=== PATIENT | female | born 1990 | race American Indian/Alaskan Native ===

== ENCOUNTER 2020-11-07 08:36 | Emergency (ER) | payer MEDICAID ==
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
== END 2020-11-07 09:40 | disposition left against medical advice (07) ==
LOC: ED 08:36
CPT/HCPCS: 99282

== ENCOUNTER 2020-11-23 18:58 | Emergency (ER) | payer MEDICAID ==
--- NOTE | 2020-11-23 22:29 | Emergency Department Report ---
- General Chief Complaint: Fever Stated Complaint: FLU LIKE SYMPTOMS Time Seen by Provider: 11/23/20 22:24 Source: patient, EMS Mode of arrival: Stretcher Limitations: No Limitations - History of Present Illness Initial Comments: 30-year-old -[place] female emergency room stating that she had a fever of "200" body aches headaches decreased taste for 2 weeks. Patient denies any cough. Patient has not vaccinated. Has not been Covid tested. Does not have a primary care provider. Came in by EMS. Denies any shortness of breath chest pain no nausea no vomiting. Onset/Timin -: week(s) Severity scale (0 -10): 2 Quality: aching Consistency: intermittent Improves With: nothing Worsens With: nothing Associated Symptoms: fever, chills, other (Body aches) Treatments Prior to Arrival: none - Related Data Previous Rx's Medication Instructions Recorded Last Taken Type Ibuprofen [Motrin] 800 mg PO Q8HR PRN #15 tablet 04/05/16 Unknown Rx Allergies Allergy/AdvReac Type Severity Reaction Status Date / Time No Known Allergies Allergy Unverified 04/05/16 13:34 ED Review of Systems ROS: Stated complaint: FLU LIKE SYMPTOMS Other details as noted in HPI Comment: All other systems reviewed and negative ED Past Medical Hx - Past Medical History Previous Medical History?: Yes 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 Anemia - Surgical History Past Surgical History?: No - Social History Smoking Status: Current Every Day Smoker Substance Use Type: None - Medications Home Medications: Home Medications Medication Instructions Recorded Confirmed Last Taken Type Ibuprofen [Motrin] 800 mg PO Q8HR PRN #15 tablet 04/05/16 Unknown Rx ED Physical Exam - General Limitations: No Limitations General appearance: alert, in no apparent distress - Head Head exam: Present: atraumatic, normocephalic - Eye Eye exam: Present: normal appearance - ENT ENT exam: Present: mucous membranes moist - Neck Neck exam: Present: normal inspection - Respiratory Respiratory exam: Present: normal lung sounds bilaterally. Absent: respiratory distress - Cardiovascular Cardiovascular Exam: Present: regular rate, normal rhythm. Absent: systolic murmur, diastolic murmur, rubs, gallop - GI/Abdominal GI/Abdominal exam: Present: soft, normal bowel sounds - Extremities Exam Extremities exam: Present: normal inspection - Back Exam Back exam: Present: normal inspection - Neurological Exam Neurological exam: Present: alert, oriented X3 - Psychiatric Psychiatric exam: Present: normal affect, normal mood - Skin Skin exam: Present: warm, dry, intact, normal color. Absent: rash ED Course Vital Signs 11/23/20 22:01 Temperature 98.6 F Pulse Rate 94 H Respiratory 12 Rate Blood Pressure 109/68 O2 Sat by Pulse 100 Oximetry ED Medical Decision Making - Medical Decision Making 30-year-old -[place] female emergency room stating that she had a fever of "200" body aches headaches decreased taste for 2 weeks. Patient denies any cough. Patient has not vaccinated. Has not been Covid tested. Does not have a primary care provider. Came in by EMS. Denies any shortness of breath chest pain no nausea no vomiting. Patient has stable vital signs physical examination is within normal limits. Discussed with patient she needs to get vaccinated Covid testing. She can take Tylenol or ibuprofen for pain. Increase her fluid intake. Critical care attestation.: If time is entered above; I have spent that time in minutes in the direct care of this critically ill patient, excluding procedure time. ED Disposition Clinical Impression: Suspected COVID-19 virus infection Disposition: TO HOME OR SELFCARE Is pt being admited?: No Does the pt Need Aspirin: No Condition: Stable Instructions: COVID-19: How to Protect Yourself and Others - CDC, Prevent the Spread of COVID-19 if You Are Sick - CDC Additional Instructions: Your symptoms appear most consistent with a nonspecific viral syndrome. However, given this current pandemic, COVID-19 is in the differential of possibilities. I do recommend outpatient Covid 19 testing. In the meantime, isolate/quarantine yourself and stay away from anyone who is elderly, immunocompromised or chronically ill. You can use ibuprofen every 6-8 hours and Tylenol every 4-8 hours, using the dosing on the back of the bottle, as needed for any fever or body aches. Return to the emergency department with any worsening of your symptoms, development of chest pain or shortness of breath, or with any acute distress. Referrals: [facility] [Provider Group] - 3-5 Days Time of Disposition: 22:29
[2020-11-23 23:27] VITALS: BP 110/75
== END 2020-11-23 23:00 | disposition home or self-care (01) ==
LOC: ED 18:58
DX: Z20.822 Contact with and (suspected) exposure to COVID-19 (principal); H91.91 Unspecified hearing loss, right ear; D64.9 Anemia, unspecified; F17.200 Nicotine dependence, unspecified, uncomplicated
CPT/HCPCS: 99283

== ENCOUNTER 2021-08-09 20:06 | Outpatient (CLI) | payer MEDICAID ==
[2021-08-09] MEDS ORDERED: LACTATED RINGERS 1,000 ML ONE (21:26)
[2021-08-09] MEDS ORDERED: LACTATED RINGERS 500 ML IV ONE (22:12)
[2021-08-09] MEDS ORDERED: ACETAMINOPHEN 325 MG TAB PO ONE (22:13)
[2021-08-09 22:53] LABS: Amphetamine Screen,Urine PRESUMPTIVE NEGATIVE; Benzodiazepines Screen,Urine PRESUMPTIVE NEGATIVE; Cannabinoid Screen,Urine PRESUMPTIVE POSITIVE; Cocaine Screen,Urine PRESUMPTIVE NEGATIVE; Methadone Screen,Urine PRESUMPTIVE NEGATIVE; Opiate Screen,Urine PRESUMPTIVE NEGATIVE
== END 2021-08-10 00:18 | disposition home or self-care (01) ==
LOC: EDSTATUS 20:33 → TRG 20:34 → LD 20:35 → TRG 08-10 00:18
PROVIDERS: ATTEND Obstetrics & Gynecology
DX: O26.893 Other specified pregnancy related conditions, third trimester (principal); M79.10 Myalgia, unspecified site; R50.9 Fever, unspecified; O21.2 Late vomiting of pregnancy; O99.323 Drug use complicating pregnancy, third trimester; F12.90 Cannabis use, unspecified, uncomplicated; Z3A.32 32 weeks gestation of pregnancy
CPT/HCPCS: 80307; 96360; J7120

== ENCOUNTER 2021-09-19 20:32 | Inpatient (IN) | payer MEDICAID ==
[2021-09-19] MEDS ORDERED: BUTORPHANOL 2 MG/1 ML INJ IV PRN ×2 (22:47→22:53)
[2021-09-19] MEDS ORDERED: TERBUTALINE 1 MG/1 ML INJ SUB-Q PRN (22:47)
[2021-09-19] MEDS ORDERED: CARBOPROST TROMETHAMINE 250 MCG/1 ML INJ IM PRN (22:47)
[2021-09-19] MEDS ORDERED: ePHEDrine SULFATE 50 MG/1 ML INJ IV PRN (22:47)
[2021-09-19] MEDS ORDERED: ACETAMINOPHEN 325 MG TAB PO PRN (22:47)
[2021-09-19] MEDS ORDERED: fentaNYL 100 MCG/2 ML INJ IV PRN (22:47)
[2021-09-19] MEDS ORDERED: METHYLERGONOVINE MALEATE 0.2 MG/ML VIAL IM PRN (22:47)
--- NOTE | 2021-09-19 22:52 | History and Physical Report ---
History of Present Illness Date of examination: 09/19/21 Date of admission: 09/19/2021 Chief complaint: Contractions History of present illness: 31-year-old at 38-2/7 weeks gestation presents to OB triage reporting regular and painful uterine contractions occurring every 3 minutes. There is no vaginal bleeding or leaking of fluid. There is good movement. In OB triage, cervical exam changed from 2/50%/-2 to 6/80%/-1. As such, this patien fulfills the contemporary criteria for the diagnosis of active labor. The patient is admitted to labor and delivery for management of active labor. Past History Past Medical History: no pertinent history Past Surgical History: no surgical history Family/Genetic History: none Social history: no significant social history - Obstetrical History Expected Date of Delivery: 10/01/21 Actual Gestation: 38 Week(s) 2 Day(s) : 5 Para: 2 Hx # Term Pregnancies: 2 Induced : 2 Medications and Allergies Allergies Allergy/AdvReac Type Severity Reaction Status Date / Time No Known Allergies Allergy Verified 08/09/21 21:30 Home Medications Medication Instructions Recorded Confirmed Last Taken Type Ibuprofen [Motrin] 800 mg PO Q8HR PRN #15 tablet 04/05/16 Unknown Rx Active Meds: Active Medications Acetaminophen (Acetaminophen 325 Mg Tab) 650 mg PO Q4H PRN PRN Reason: Pain, Mild (1-3) Butorphanol Tartrate (Butorphanol 2 Mg/1 Ml Inj) 1 mg IV Q2H PRN PRN Reason: Pain, Moderate(4-6) LABOR PAIN Carboprost Tromethamine (Carboprost Tromethamine 250 Mcg/1 Ml Inj) 250 mcg IM ONCE PRN PRN Reason: Uterine Bleeding Ephedrine Sulfate (Ephedrine Sulfate 50 Mg/1 Ml Inj) 10 mg IV Q2M PRN PRN Reason: Hypotension Fentanyl (Fentanyl 100 Mcg/2 Ml Inj) 100 mcg IV Q2H PRN PRN Reason: Pain,Severe (7-10) LABOR PAIN Lactated Ringer's (Lactated Ringers) 1,000 mls @ 125 mls/hr IV DIRECT NUBIA Oxytocin/Sodium Chloride (Pitocin/Ns 30 Unit/500ml) 30 units in 500 mls @ 40 mls/hr IV TITR NUBIA; Protocol Methylergonovine Maleate (Methylergonovine Maleate 0.2 Mg/Ml Vial) 0.2 mg IM ONCE PRN PRN Reason: Uterine Bleeding Terbutaline Sulfate (Terbutaline 1 Mg/1 Ml Inj) 0.25 mg SUB-Q ONCE PRN PRN Reason: Hyperstimulation/Hypertonicity Review of Systems All systems: negative - Vital Signs Vital signs: Vital Signs Pulse Pulse Ox 78 98 09/19/21 20:50 09/19/21 20:50 Temp Pulse Resp BP Pulse Ox 97.6 F 89 117/89 99 09/19/21 21:02 09/19/21 22:44 09/19/21 22:09 09/19/21 22:44 - Physical Exam Breasts: Positive: normal Cardiovascular: Regular rate Lungs: Positive: Normal air movement Abdomen: Positive: normal appearance Genitourinary (Female): Positive: normal external genitalia, normal perenium Vulva: both: normal Vagina: Positive: normal moisture Uterus: Positive: enlarged Adnexa: both: normal Anus/Rectum: Positive: normal perianal skin Extremities: Positive: normal Deep Tendon Reflex Grade: Normal +2 - Obstetrical FHR: category 1 Uterine Contraction Monitor Mode: External Cervical Dilatation: 6 Cervical Effacement Percentage: 80 station: -1 Uterine Contraction Frequency (min): 3 Uterine Contraction Pattern: Regular Uterine Tone Measurement Phase: Contraction Uterine Contraction Intensity: Moderate Results All other labs normal. Ultrasound: pending (OB Ultrasound Limited= ordered) Assessment and Plan - Patient Problems (1) 38 weeks gestation of Current Visit: Yes Status: Acute Plan to address problem: care is up-to-date at . The patient states that she is GBS negative. (2) Spontaneous onset of labor after 37 but before 39 completed weeks gestation with delivery by planned section Current Visit: Yes Status: Acute Plan to address problem: Cervix change from 2 cm dilated to 6 cm dilated. As such, this patient is an active labor. Admit to labor and delivery. Expectant management for now. Artificially rupture membranes and/or start Pitocin for augmentation as needed.
[2021-09-19] MEDS ORDERED: LACTATED RINGERS 1,000 ML IV SCH (23:00)
[2021-09-19] MEDS ORDERED: OXYTOCIN DRIP 30 UNITS/500 ML BAG IV SCH (23:00)
[2021-09-19 23:13] LABS: Hematocrit 30.9 % (30.3-42.9); Hemoglobin 10.3 gm/dl (10.1-14.3); Mean Corpuscular HGB Conc 33 % (30-34); Mean Corpuscular Volume 75 fl (79-97); Platelet Count 274 K/mm3 (140-440); Red Blood Count 4.13 M/mm3 (3.65-5.03); Red Cell Distribution Width 15.9 % (13.2-15.2)
[2021-09-19] MEDS ORDERED: LIDOCAINE (2%) 20 MG/1 ML VIAL 20 ML MDV INFILTRATI ONE (23:54)
[2021-09-20] MEDS ORDERED: ACETAMINOPHEN 325 MG TAB PO PRN (00:22)
[2021-09-20] MEDS ORDERED: BENZOCAINE/MENTHOL 20/0.5% TOP SPRAY 56 GM TP PRN (00:22)
[2021-09-20] MEDS ORDERED: WITCH HAZEL/ GLYCERIN PAD TP PRN (00:22)
[2021-09-20] MEDS ORDERED: LANOLIN/ZINC/DIMETHICONE (LANSINOH) 7 GM TP PRN (00:22)
[2021-09-20] MEDS ORDERED: MAGNESIUM HYDROXIDE (MOM) ORAL LIQD UDC PO PRN (00:22)
--- NOTE | 2021-09-20 00:26 | Procedure Note ---
OB Delivery Note - Delivery Date of Delivery: 09/19/21 Surgeon: KG MORALES Estimated blood loss: 100cc - Vaginal Delivery presentation: vertex Delivery position: OA Intrapartum events: precipitous labor- <3hr Delivery induction: none Delivery monitor: external FHT, external uterine Route of delivery: Delivery placenta: spontaneous Delivery cord: 3 umbilical vessels Episiotomy: none Delivery laceration: other (Periurethral laceration) Delivery repair: vicryl Anesthesia: local - Infant A at 1 minute: 8 at 5 minutes: 9 Infant Gender: Female
[2021-09-20] MEDS: IBUPROFEN 800 MG TAB PO SCH ×4 (01:12→17:33)
[2021-09-20] MEDS: HYDROcodone/ACETAMINOPHEN 5-325 MG TAB PO PRN ×2 (02:54→12:20)
[2021-09-20 04:29] LABS: Hepatitis C Virus Antibody Non-Reactive (NonReactive)
[2021-09-20] MEDS: DOCUSATE SODIUM 100 MG CAP PO SCH ×2 (09:07→22:50)
--- NOTE | 2021-09-20 09:18 | Progress Note ---
Assessment and Plan A: PPD # 1 - stable P: Discharge in am Discharge instructions given Subjective - Subjective Date of service: 09/20/21 Principal diagnosis: PPD # 1 - stable Patient reports: appetite normal : doing well Objective - Vital Signs Latest vital signs: Vital Signs Temp Pulse Resp BP Pulse Ox Pulse Ox 09/20/21 08:15 99 09/20/21 04:47 99 09/20/21 04:16 98.2 F 61 18 118/47 97 09/20/21 03:54 18 09/20/21 03:25 84 100 09/20/21 03:24 85 93 09/20/21 03:20 68 100 09/20/21 03:15 65 99 09/20/21 03:10 67 99 09/20/21 03:05 71 99 09/20/21 03:00 98.5 F 62 99 09/20/21 02:55 67 99 09/20/21 02:50 70 100 09/20/21 02:45 82 99 09/20/21 02:40 73 100 09/20/21 02:35 88 99 09/20/21 02:30 98 H 99 09/20/21 02:25 81 100 09/20/21 02:20 83 99 09/20/21 02:15 92 H 98 09/20/21 02:10 97 H 100 09/20/21 02:05 80 98 09/20/21 02:00 82 98 09/20/21 01:55 78 99 09/20/21 01:50 94 H 99 09/20/21 01:45 73 98 09/20/21 01:40 61 99 09/20/21 01:35 71 98 09/20/21 01:30 68 99 09/20/21 01:25 64 100 09/20/21 01:20 62 97 09/20/21 01:18 66 93 09/20/21 01:15 70 98 09/20/21 01:10 59 L 100 09/20/21 01:05 80 98 09/20/21 01:00 67 98 09/20/21 00:55 72 99 09/20/21 00:50 72 100 09/20/21 00:45 77 97 09/20/21 00:40 67 100 09/20/21 00:35 73 100 09/20/21 00:33 70 104/67 09/20/21 00:30 75 100 09/20/21 00:25 73 100 09/20/21 00:20 80 100 09/20/21 00:15 82 100 09/20/21 00:10 82 100 09/20/21 00:05 100 H 100 09/20/21 00:00 89 100 09/19/21 23:55 100 H 100 09/19/21 23:50 77 99 09/19/21 23:45 122 H 99 09/19/21 23:40 96 H 99 09/19/21 23:35 93 H 100 09/19/21 23:30 105 H 100 09/19/21 23:25 99 H 99 09/19/21 23:20 96 H 115/70 99 09/19/21 23:15 108 H 99 09/19/21 23:10 107 H 98 09/19/21 22:44 89 99 09/19/21 22:39 90 99 09/19/21 22:34 100 H 98 09/19/21 22:29 90 98 09/19/21 22:24 83 99 09/19/21 22:19 94 H 99 09/19/21 22:14 87 99 09/19/21 22:09 93 H 117/89 100 09/19/21 22:00 89 98 09/19/21 21:55 96 H 99 09/19/21 21:50 91 H 98 09/19/21 21:45 85 99 09/19/21 21:40 87 99 09/19/21 21:37 90 84 09/19/21 21:35 86 99 09/19/21 21:30 86 99 09/19/21 21:25 89 99 09/19/21 21:20 85 98 09/19/21 21:15 69 96 09/19/21 21:10 84 98 09/19/21 21:05 88 98 09/19/21 21:02 97.6 F 09/19/21 21:00 103 H 98 09/19/21 20:55 90 98 09/19/21 20:50 78 98 Intake and Output 09/19/21 09/20/21 09/20/21 22:59 06:59 14:59 Intake Total 240 Output Total 400 Balance -160 Intake: Oral 240 Output: Urine 400 Void 400 Other: Total, Intake Amount 240 Total, Output Amount 400 Weight 114 lb Estimated Blood Loss 100 - Exam Breasts: Present: deferred Cardiovascular: Present: Regular rate Lungs: Present: Clear to auscultation Abdomen: Present: soft Vulva: both: normal Uterus: Present: fundal height below umbilicus Deep Tendon Reflex Grade: Normal +2 - Labs Labs: Abnormal lab results 09/19/21 Range/Units 23:00 MCV 75 L (79-97) fl MCH 25 L (28-32) pg RDW 15.9 H (13.2-15.2) %
--- NOTE | 2021-09-20 09:20 | Discharge Summary ---
Providers - Providers Date of Admission: 09/19/21 22:47 Date of discharge: 09/21/21 Attending physician: KG MORALES MD 09/20/21 07:27 Consult to Case Management [CONS] Routine Services Needed at Discharge: Other Notified:: Yes Comment:: Limited PNC Primary care physician: KG MORALES MD Hospitalization Reason for admission: active labor Delivery: Episiotomy: none Laceration: none Discharge diagnosis: IUP at term delivered baby: female Condition at discharge: Good Disposition: 01 HOME / SELF CARE / HOMELESS Plan - Provider Discharge Summary Activity: routine, no sex for 6 weeks, no strenuous exercise Additional instructions: [] Smoking cessation referral if applicable(refer to patient education folder for contact #) [] Refer to [facility]'s [facility] Booklet Call your doctor immediately for: * Fever > 100.5 * Heavy vaginal bleeding ( >1 pad per hour) * Severe persistent headache * Shortness of breath * Reddened, hot, painful area to leg or breast * Drainage or odor from incision. * Keep incision clean and dry at all times and follow doctor's instructions regarding bathing/showering - Follow up plan Follow up: KG MORALES MD [Primary Care Provider] - 6 Weeks
[2021-09-21] MEDS: IBUPROFEN 800 MG TAB PO SCH ×3 (01:05→13:23)
[2021-09-21 10:11] LABS: Hemoglobin 9.2 gm/dl (10.1-14.3); Mean Corpuscular HGB Conc 32 % (30-34); Mean Corpuscular Volume 77 fl (79-97); Platelet Count 273 K/mm3 (140-440); Red Blood Count 3.79 M/mm3 (3.65-5.03); Red Cell Distribution Width 16.1 % (13.2-15.2)
[2021-09-21] MEDS: DOCUSATE SODIUM 100 MG CAP PO SCH (10:14)
[2021-09-21 16:56] VITALS: BP 97/57
== END 2021-09-21 14:00 | disposition home or self-care (01) | DRG 775 ==
LOC: TRG 20:32 → APU 20:34 → LD 22:47 → TRG 22:47 → OB 09-20 04:19
PROVIDERS: ADMIT Obstetrics & Gynecology Gynecology; ATTEND Obstetrics & Gynecology Gynecology
PROC: 10E0XZZ Delivery of Products of Conception, External Approach (ICD-10-PCS; principal; 2021-09-19)
DX: O62.3 Precipitate labor (principal); Z20.822 Contact with and (suspected) exposure to COVID-19; O71.82 Other specified trauma to perineum and vulva; Z3A.38 38 weeks gestation of pregnancy; Z37.0 Single live birth
CPT/HCPCS: 36415; 85027; 86592; 86706; 86762; 86803; 86850; 86900; 86901; 87806; 99211; G0378; G0463; U0003